=== PATIENT | male | born 1955 | race American Indian/Alaskan Native ===

== ENCOUNTER 2021-12-10 11:15 | Emergency (ER) | payer MEDICARE, SELFPAY ==
--- NOTE | 2021-12-10 19:37 | Cat Scan Report ---
CT BRAIN: 12/10/2021 INDICATION / CLINICAL INFORMATION: head injury. COMPARISON: None available. FINDINGS: BRAIN/INTRACRANIAL STRUCTURES: Unenhanced CT images of the brain demonstrate no evidence of acute int racranial abnormality. Ventricles and sulci are normal in size and shape for a patient of this age. Some chronic white matter hypoattenuation is present in the periventricular white matter in the left frontal lobe, and is evidence of an old lacunar infarct in the region of the right globus pallidus. There is no evidence of hemorrhage or mass. There are no abnormal extra-axial fluid collections. EXTRACRANIAL STRUCTURES: Unremarkable. IMPRESSION: No acute abnormality. All CT scans at this location are performed using dose reduction to ALARA by means of automated expos ure control. Signer Name: Edi Rubin MD Signed: 12/10/2021 7:31 PM Workstation Name: [id number]
--- NOTE | 2021-12-10 20:36 | Vascular Lab Report ---
DUPLEX DOPPLER LOWER EXTREMITY VEINS, LEFT INDICATION / CLINICAL INFORMATION: leg pain, hx dvt. TECHNIQUE: Duplex doppler imaging was performed through the veins of the left lower extremity using venous compr ession and other maneuvers. COMPARISON: None available. FINDINGS: LEFT COMMON FEMORAL VEIN: Negative. LEFT FEMORAL VEIN: Negative. LEFT POPLITEAL VEIN: Negative. LEFT CALF VEINS: Negative. ADDITIONAL FINDINGS: None. IMPRESSION: 1. No sonographic evidence for DVT in the left lower extremity. Signer Name: Boaz Koch MD Signed: 12/10/2021 8:32 PM Workstation Name: [id number]
--- NOTE | 2021-12-10 20:47 | Emergency Department Report ---
ED Fall HPI - General Chief Complaint: Extremity Problem,Nontraumatic Stated Complaint: OLD BLOOD CLOT IN LEG Time Seen by Provider: 12/10/21 18:01 Source: patient Mode of arrival: Ambulatory - History of Present Illness Initial Comments: 66-year-old black male with past medical history of hypertension and a left lower leg DVT presents to the emergency department for evaluation after falling off a ladder yesterday. He states that when he fell he landed on his feet and then fell backwards and hit his head. He denies loss of consciousness. States that he has pain to his left hip area that is mostly resolved after putting ice to area overnight, but he states that he has pain to the back of his leg into the back of his calf similar to the pain that he had when he had a DVT a few years ago. He states that he is currently on aspirin and Plavix but not on an OAC. He denies headache, vision changes, dizziness, fever, chest pain, shortness of breath, and hemoptysis. MD Complaint: fall -: Sudden, days(s) (1) Fall From: other (Short ladder) When Fall Occurred: 24 hours [employer] Fall Witnessed: no Place Fall Occurred: home Loss of Consciousness: none Symptoms Prior to Fall: none Location - Extremities: Left: Leg Severity scale (0 -10): 4 Context: tripped/slipped Associated Symptoms: denies: headache, neck pain, numbness, weakness, chest paint, shortness of breath, abdominal pain, hematuria, unable to walk, lightheaded, vertigo, confusion - Related Data Home Medications Medication Instructions Recorded Confirmed Last Taken Amlodipine Besylate 5 mg PO DAILY 08/01/15 12/10/21 07/31/15 Aspirin [Adult Low Dose Aspirin EC] 81 mg PO DAILY 08/01/15 12/10/21 07/30/15 AtorvaSTATin 40 mg PO HS 08/01/15 12/10/21 07/31/15 Clopidogrel 75 mg PO DAILY 08/01/15 12/10/21 07/30/15 Indomethacin 50 mg PO DAILY PRN 08/01/15 12/10/21 07/31/15 Losartan 50 mg PO DAILY 08/01/15 12/10/21 07/31/15 Metoprolol 25 mg PO DAILY 08/01/15 12/10/21 07/31/15 Allergies Allergy/AdvReac Type Severity Reaction Status Date / Time No Known Allergies Allergy Verified 12/10/21 17:44 ED Review of Systems ROS: Stated complaint: OLD BLOOD CLOT IN LEG Other details as noted in HPI Comment: All other systems reviewed and negative Constitutional: denies: chills, fever Eyes: denies: eye pain, vision change ENT: denies: ear pain, throat pain, dental pain Respiratory: denies: cough, shortness of breath, wheezing Cardiovascular: denies: chest pain, palpitations, dyspnea on exertion, orthopnea, edema, syncope, paroxysmal nocturnal dyspnea Gastrointestinal: denies: abdominal pain, nausea, vomiting, diarrhea, hematemesis, melena, hematochezia Genitourinary: denies: urgency, dysuria, frequency, testicular pain Neurological: denies: headache, weakness, numbness, paresthesias, confusion, abnormal gait, vertigo Hematological/Lymphatic: denies: easy bleeding, easy bruising ED Past Medical Hx - Past Medical History Hx Hypertension: Yes Hx Heart Attack/AMI: Yes Hx Liver Disease: Yes (hep C) Hx Renal Disease: No Hx Sickle Cell Disease: No Hx Seizures: No Hx Asthma: No Hx COPD: No - Surgical History Hx Pacemaker: No Hx Internal Defibrillator: No - Social History Smoking Status: Never Smoker Substance Use Type: None - Medications Home Medications: Home Medications Medication Instructions Recorded Confirmed Last Taken Type Amlodipine Besylate 5 mg PO DAILY 08/01/15 12/10/21 07/31/15 History Aspirin [Adult Low Dose Aspirin EC] 81 mg PO DAILY 08/01/15 12/10/21 07/30/15 History AtorvaSTATin 40 mg PO HS 08/01/15 12/10/21 07/31/15 History Clopidogrel 75 mg PO DAILY 08/01/15 12/10/21 07/30/15 History Indomethacin 50 mg PO DAILY PRN 08/01/15 12/10/21 07/31/15 History Losartan 50 mg PO DAILY 08/01/15 12/10/21 07/31/15 History Metoprolol 25 mg PO DAILY 08/01/15 12/10/21 07/31/15 History ED Physical Exam - General Limitations: No Limitations, Other General appearance: alert, in no apparent distress - Head Head exam: Present: atraumatic, normocephalic - Eye Eye exam: Present: normal appearance. Absent: conjunctival injection - Neck Neck exam: Present: normal inspection, full ROM. Absent: tenderness, lymphadenopathy - Respiratory Respiratory exam: Present: normal lung sounds bilaterally. Absent: respiratory distress, wheezes, rales, rhonchi, stridor, chest wall tenderness - Cardiovascular Cardiovascular Exam: Present: regular rate, normal heart sounds - GI/Abdominal GI/Abdominal exam: Present: soft, normal bowel sounds. Absent: distended, tenderness, guarding, rebound, rigid - Extremities Exam Extremities exam: Present: normal inspection - Expanded Lower Extremity Exam Left Hip exam: Present: normal inspection, tenderness. Absent: swelling, abrasion, laceration, ecchymosis, deformity, crepidus, dislocation, erythema, shortening Upper Leg exam: Present: normal inspection, full ROM, tenderness (Posterior area). Absent: swelling, abrasion, ecchymosis, erythema Knee exam: Present: normal inspection, crepidus. Absent: tenderness Lower Leg exam: Present: normal inspection, tenderness. Absent: swelling, abrasion, erythema Ankle exam: Present: normal inspection Foot/Toe exam: Present: normal inspection Neuro vascular tendon exam: Present: no vascular compromise. Absent: pulse deficit, abnormal cap refill, motor deficit, sensory deficit, extremity cold to touch, pallor Gait: Positive: observed and normal - Back Exam Back exam: Present: normal inspection. Absent: tenderness, CVA tenderness (R), CVA tenderness (L), vertebral tenderness - Neurological Exam Neurological exam: Present: alert, oriented X3 - Psychiatric Psychiatric exam: Present: normal affect, normal mood - Skin Skin exam: Present: warm, dry, intact, normal color ED Course Vital Signs 12/10/21 12/10/21 12/10/21 11:49 17:40 20:54 Temperature 98.2 F 97.7 F 98.0 F Pulse Rate 77 75 88 Respiratory 18 20 20 Rate Blood Pressure 104/71 124/78 128/88 [Right] O2 Sat by Pulse 97 100 100 Oximetry ED Medical Decision Making - Radiology Data Radiology results: report reviewed CT head without contrast: FINDINGS: BRAIN/INTRACRANIAL STRUCTURES: Unenhanced CT images of the brain demonstrate no evidence of acute intracranial abnormality. Ventricles and sulci are normal in size and shape for a patient of this age. Some chronic white matter hypoattenuation is present in the periventricular white matter in the left frontal lobe, and is evidence of an old lacunar infarct in the region of the right globus pallidus. There is no evidence of hemorrhage or mass. There are no abnormal extra-axial fluid collections. EXTRACRANIAL STRUCTURES: Unremarkable. IMPRESSION: No acute abnormality. Venous duplex ultrasound left lower extremity: FINDINGS: LEFT COMMON FEMORAL VEIN: Negative. LEFT FEMORAL VEIN: Negative. LEFT POPLITEAL VEIN: Negative. LEFT CALF VEINS: Negative. ADDITIONAL FINDINGS: None. IMPRESSION: 1. No sonographic evidence for DVT in the left lower extremity. - Medical Decision Making 66-year-old black male with past medical history of hypertension and a left lower leg DVT presents to the emergency department for evaluation after falling off a ladder yesterday. He states that when he fell he landed on his feet and then fell backwards and hit his head. He denies loss of consciousness. States that he has pain to his left hip area that is mostly resolved after putting ice to area overnight, but he states that he has pain to the back of his leg into the back of his calf similar to the pain that he had when he had a DVT a few years ago. He states that he is currently on aspirin and Plavix but not on an OAC. He denies headache, vision changes, dizziness, fever, chest pain, shortness of breath, and hemoptysis. No gross abnormalities noted on exam. CT scan negative for any acute abnormalities patient is advised to continue his home medicine as previously prescribed and follow-up with his primary care provider for further evaluation managed he is advised to use Tylenol at home as pain. He is advised to return to emergency department for any concerning symptoms. He verbalizes understanding care. Critical care attestation.: If time is entered above; I have spent that time in minutes in the direct care of this critically ill patient, excluding procedure time. ED Disposition Clinical Impression: Left leg pain Fall Qualifiers: Encounter type: initial encounter Qualified Code(s): W19.XXXA - Unspecified fall, initial encounter Head injury Qualifiers: Encounter type: initial encounter Qualified Code(s): S09.90XA - Unspecified injury of head, initial encounter Disposition: HOME / SELF CARE / HOMELESS Is pt being admited?: No Does the pt Need Aspirin: No Condition: Stable Instructions: How to Use Cold Therapy, [id number], Head Injury, Adult, [id number] Additional Instructions: Take ibuprofen and Tylenol as needed for pain. Follow-up primary care provider for worsening symptoms. Turn to the emergency department as needed. Referrals: MONIK NELSON MD [Primary Care Provider] - 3-5 Days Time of Disposition: 20:47
[2021-12-10 20:54] VITALS: BP 128/88
== END 2021-12-10 20:55 | disposition home or self-care (01) ==
LOC: ED 11:15
DX: S09.90XA Unspecified injury of head, initial encounter (principal); M79.605 Pain in left leg; I11.9 Hypertensive heart disease without heart failure; B19.20 Unspecified viral hepatitis C without hepatic coma; W11.XXXA Fall on and from ladder, initial encounter; Y93.89 Activity, other specified; Y92.89 Other specified places as the place of occurrence of the external cause; Y99.8 Other external cause status
CPT/HCPCS: 70450; 99283